=== PATIENT | female | born 1990 | race Caucasian/White ===

== ENCOUNTER 2016-09-29 07:12 | Inpatient (IN) | payer BC, OTHER ==
[2016-09-29] VITALS (25 sets, daily range): BP systolic 85–148; BP diastolic 42–90; PULSE 72–121; RESP 16–20; TEMP 98.1–98.5; O2SAT 97–98
[~2016-09-29 07:12] MED LIST: SULF-154 PO; Z.0.NO CURRENT MEDS
--- NOTE | 2016-09-29 08:44 | HHI.HP ---
History & Physical H&P HPI HPI Chief Complaint leakage of fluid Date Seen: Sep 29, 2016 Travel History International Travel<30 Days: No Contact w/Intl Traveler<30Days: No Known Affected Area: No History of Present Illness HPI 26 yo @ 40w6d, care with Dr. Gomes. Uncomplicated . GBS negative. Patient reports gush of fluid @ 6;30 am, clear. Starting to have UC stronger now every few min. No VB. +Fm History (Limited) History Past Medical History Narrative Medical PCOS Obstetric History Obstetric History G1 Past Surgical History Surgical History: No Previous Surgery Family History Family History: Negative Social History Alcohol Use: No Tobacco Use: No Substance Abuse: No Allergies-Medications Allergies-Medications (Allergen,Severity, Reaction): Coded Allergies: No Known Allergies (Verified , 09/29/16) Home Meds Active Scripts Sulfamethoxazole-Trimethoprim (Septra Ds) Tab1 Tab PO BID 10 Days Prov:KEVIN GRACE M.D. 07/10/10 Reported Medications Miscellaneous (No Current Meds) Misc 07/10/10 ROS Review of Systems General / Constitutional: No: Fever, Chills Eyes: No: Blurred Vision, Visual changes HENT: No: Headaches, Lightheadedness Cardiovascular: No: Chest Pain or Discomfort, Palpitations Respiratory: No: Cough, Short of Breath Gastrointestinal: Abdominal Pain (contractions), No: Nausea, Vomiting Genitourinary: Discharge (clear fluid), No: Urgency, Dysuria, Vaginal Bleeding Musculoskeletal: No: Limited ROM, Weakness Skin: No Rash, No Itching, No Lesions Neurologic: No: Syncope, Focal Abnormalities Physical Exam Physical Exam Narrative GENERAL: Well-nourished, well-developed patient. Uncomfortable with UC SKIN: Warm and dry. HEAD: Normocephalic and atraumatic. EYES: No scleral icterus. No injection or drainage. ENT: No nasal drainage noted. Mucous membranes pink. Airway patent. NECK:, trachea midline. No JVD. CARDIOVASCULAR: Regular rate and rhythm without murmurs, gallops, or rubs. RESPIRATORY: Breath sounds equal bilaterally. No accessory muscle use. ABDOMEN/GI: Abdomen soft, non-tender, no rebound, no guarding Gravid GENITOURINARY: External Genitalia: intact and normal in appearance BUS glands: [-] Amnisure POS SVE 3/80/-3 clear fluid, vtx FHT's: Category: I Baseline:140 Reactive: + Variability: mod Decels: [-] EXTREMITIES: No cyanosis, +2 edema, NT BACK: Nontender without obvious deformity. NEUROLOGICAL: Awake and alert. Motor and sensory grossly within normal limits. . Normal speech. Data Data Data Vital Signs Reviewed: Yes Orders Ob (2e) Additional Admit Info (09/29/16 07:54) Vital Signs (Adult) .ON ADMISSION (09/29/16 08:32) ^ Labor Status (09/29/16 08:32) ^ Non Stress Test (09/29/16 08:32) Pamg-1 Test .ONCE (09/29/16 08:32) MDM MDM Narrative Course / MDM 40 weeks PROM, now jett GBS negative CAT I FHT 3cm Plan Admit reviewed labor and admission reviewed pitocin as indicated Dr. Mclean aware. Renetta Wolff MD Sep 29, 2016 08:43 Renetta Wolff MD Sep 29, 2016 08:44
[2016-09-29] MEDS ORDERED: LACTATED RINGER'S 1000 ML INJ 1,000 ML IV PRN (10:03)
[2016-09-29] MEDS ORDERED: OXYTOCIN 30 UNITS-500ML PREMIX 500 ML IV ONE ×3 (10:15→20:45)
[2016-09-29] MEDS ORDERED: CITRIC ACID-SODIUM CITRATE LIQ 30 ML UDC PO SCH (10:15)
[2016-09-29] MEDS ORDERED: SODIUM CHLORID 0.9% 500 ML INJ 500 ML IV PRN (10:15)
[2016-09-29] MEDS ORDERED: LIDOCAINE HCL 1% 50 ML VIAL I-DERMAL PRN (10:15)
[2016-09-29] MEDS ORDERED: MINERAL OIL 10 ML VIAL TOPICAL PRN (10:15)
[2016-09-29] MEDS ORDERED: LIDOCAINE HCL 1% 50 ML VIAL INFIL PRN (10:15)
[2016-09-29 10:16] LABS: AUTOMATED NEUTROPHIL # 6.8 TH/MM3 (1.8-7.7); BASOPHIL % 0.2 % (0.0-2.0); EOSINOPHIL # 0.1 TH/MM3 (0-0.4); EOSINOPHIL % 1.3 % (0.0-4.0); HEMATOCRIT 36.6 % (35.0-46.0); HEMO FLAGS DIFF FINAL; LYMPH % 20.5 % (9.0-44.0); MEAN CELL VOLUME 89.9 FL (80.0-100.0); MEAN CORPUSCULAR HEMOGLOBIN 30.1 PG (27.0-34.0); MEAN CORPUSCULAR HGB CONC 33.4 % (32.0-36.0); MONO % 6.6 % (0.0-8.0); NEUT % 71.4 % (16.0-70.0); PLATELET COUNT 304 TH/MM3 (150-450); RED BLOOD COUNT 4.07 MIL/MM3 (4.00-5.30); RED CELL DISTRIBUTION WIDTH 13.1 % (11.6-17.2); WHITE BLOOD COUNT 9.6 TH/MM3 (4.0-11.0)
[2016-09-29] MEDS ORDERED: fentaNYL 2MCG-BUPIV 0.125% INJ 100 ML ONE (10:18)
[2016-09-29] MEDS ORDERED: SODIUM CHLOR 0.9% 1000 ML INJ 1,000 ML IV PRN (10:23)
[2016-09-29] MEDS: LACTATED RINGER'S 1000 ML INJ 1,000 ML IV SCH ×2 (10:53→15:08)
[2016-09-29] MEDS ORDERED: GENTAMICIN/SOD CHL 80 MG/100 ML IV ONE (15:15)
[2016-09-29] MEDS ORDERED: fentaNYL 2MCG-BUPIV 0.125% 100 ML EPIDURAL SCH (15:30)
[2016-09-29] MEDS ORDERED: DO NOT ADMINISTER ANTICOAGULANTS PRN (15:30)
[2016-09-29] MEDS ORDERED: NO SYSTEM NARCOTICS PRN (15:30)
[2016-09-29] MEDS ORDERED: ePHEDrine/NS 25 MG/5 ML SYR IV PRN (15:30)
[2016-09-29] MEDS ORDERED: AMPICILLIN 1 GM/NS 100 ML IV SCH ×2 (16:00)
--- NOTE | 2016-09-29 17:28 | HHI.PR ---
Subjective Remarks I have to push. The pain is bad Objective Vital Signs Date Time Temp Pulse Resp B/P Pulse Ox O2 Delivery O2 Flow Rate FiO2 09/29/16 16:46 95 104/74 09/29/16 16:31 94 148/73 09/29/16 16:16 109 129/52 09/29/16 16:10 98.3 20 09/29/16 16:00 93 123/70 09/29/16 15:46 102 101/66 09/29/16 15:30 20 09/29/16 15:15 90 113/54 09/29/16 14:37 78 106/49 09/29/16 14:35 90 106/57 09/29/16 14:33 99 113/50 09/29/16 12:30 16 09/29/16 12:15 72 110/61 09/29/16 10:53 18 Result Diagram: 09/29/16 0820 Other Results Abdomen is soft but not warm Pelvic she has a small anterior lip which reduces easily with pushing. Baby is at zero station. Moves with pushing. She is warm inside Objective Remarks Tracing looks ok, she had a couple lates but they resolved. Assessment and Plan Assessment and Plan Advanced labor... will try to push and see if she brings the baby down. The baby is OP Chorioamnionitis Earlier today she had chills but no temp and was not warm. She spiked a fever and we started amp and gent. Notified peds already Would like to have a and will watch the strip carefully. Her pelvis is adequate. Naren Mclean MD Sep 29, 2016 17:28
[2016-09-29] MEDS ORDERED: OXYTOCIN 10 UNIT/ML AMP ONE (18:13)
[2016-09-29] MEDS ORDERED: METHYLERGONOVINE MALEATE 0.2 MG/ML VIAL ONE (18:14)
[2016-09-29] MEDS ORDERED: CARBOPROST TROMETHAMINE 250 MCG/ML VIAL ONE (18:14)
[2016-09-29] MEDS ORDERED: ONDANSETRON HCL 4 MG/2 ML VIAL ONE (18:36)
[2016-09-29] MEDS ORDERED: MORPHINE SULFATE PF 5 MG/10 ML VIAL ONE (18:36)
[2016-09-29] MEDS ORDERED: ACETAMINOPHEN 1000 MG/100 ML VIAL IV ONE (18:37)
[2016-09-29] MEDS ORDERED: ceFAZolin INJ 1,000 MG VIAL ONE (18:37)
[2016-09-29 19:37] LABS: BLOOD GAS BASE EXCESS -5.9 mmol/L (-2-2); BLOOD GAS O2 HGB SATURATION 9 % (90-100); CORD BLOOD GAS HCO3 21 mmol/L (21-29); CORD BLOOD GAS PCO2 59 mmHG (34-78); CORD BLOOD GAS PH 7.18 (7.14-7.42); CORD BLOOD GAS PO2 11 mmHG (3.0-40.0); DRAW SITE CORD BLOOD; STAT NO
[2016-09-29] MEDS ORDERED: SODIUM CHLORIDE 0.9% FLUSH 10 ML FLUSH IV FLUSH PRN (20:45)
[2016-09-29] MEDS ORDERED: SIMETHICONE 80 MG CHEWABLE TAB PO PRN (20:45)
[2016-09-29] MEDS ORDERED: ONDANSETRON HCL 4 MG/2 ML VIAL IV PUSH PRN (20:45)
[2016-09-29] MEDS ORDERED: oxyCODONE/ACETAMINOPHEN 5 MG/325 MG TAB PO PRN (20:45)
[2016-09-29] MEDS: SODIUM CHLORIDE 0.9% FLUSH 10 ML FLUSH IV FLUSH SCH (21:00)
[2016-09-29] MEDS ORDERED: ZOLPIDEM TARTRATE 5 MG TAB PO PRN (21:00)
[2016-09-29] MEDS ORDERED: LACTATED RINGER'S 1,000 ML BAG IV ONE (21:04)
[2016-09-29] MEDS ORDERED: PHENYLEPHRINE HCL 10 MG/ML VIAL IV ONE (21:04)
[2016-09-29] MEDS ORDERED: SODIUM BICARBONATE 8.4% SOLN 50 MEQ/50 ML VIAL IV ONE (21:04)
[2016-09-29] MEDS ORDERED: LIDOCAINE 2%/EPINEPHrine PF 1:200,000 20ML SDV NERV BLOCK ONE (21:04)
[2016-09-29] MEDS ORDERED: OXYTOCIN 30 UNITS-500ML PREMIX 500 ML ONE (21:11)
[2016-09-29] MEDS ORDERED: EPIDURAL-DIPHENHYDRAMINE HCL 50 MG CAP PO PRN (22:30)
[2016-09-29] MEDS ORDERED: EPIDURAL-DIPHENHYDRAMINE HCL 50 MG/ML VIAL IV PUSH PRN (22:30)
[2016-09-29] MEDS ORDERED: EPIDURAL-NALOXONE HCL 0.4 MG/ML AMP IV PRN (22:30)
[2016-09-29] MEDS ORDERED: EPIDURAL-DO NOT ADMINISTER ANTICOAGULANTS PRN (22:30)
[2016-09-29] MEDS ORDERED: EPIDURAL-NO SYSTEMIC NARCOTICS PRN (22:30)
[2016-09-30] VITALS (13 sets, daily range): BP systolic 97–114; BP diastolic 50–69; PULSE 87–111; RESP 14–20; TEMP 97.7–98.5
[2016-09-30] MEDS ORDERED: LACTATED RINGER'S 1000 ML INJ 1,000 ML IV SCH (01:36)
[2016-09-30] MEDS: ACETAMINOPHEN 1000 MG/100 ML VIAL IV SCH ×2 (03:21→10:47)
[2016-09-30 06:19] LABS: AUTOMATED NEUTROPHIL # 10.7 TH/MM3 (1.8-7.7); BASOPHIL % 0.2 % (0.0-2.0); EOSINOPHIL % 0.1 % (0.0-4.0); HEMATOCRIT 22.3 % (35.0-46.0); HEMO FLAGS DIFF FINAL; LYMPH % 13.4 % (9.0-44.0); LYMPHOCYTE # 1.8 TH/MM3 (1.0-4.8); MEAN CELL VOLUME 89.3 FL (80.0-100.0); MEAN CORPUSCULAR HEMOGLOBIN 30.5 PG (27.0-34.0); MEAN CORPUSCULAR HGB CONC 34.2 % (32.0-36.0); MONO % 8.4 % (0.0-8.0); NEUT % 77.9 % (16.0-70.0); PLATELET COUNT 233 TH/MM3 (150-450); RED BLOOD COUNT 2.49 MIL/MM3 (4.00-5.30); RED CELL DISTRIBUTION WIDTH 13.1 % (11.6-17.2); WHITE BLOOD COUNT 13.7 TH/MM3 (4.0-11.0)
[2016-09-30] MEDS ORDERED: OXYTOCIN 30 UNITS-500ML PREMIX 500 ML IV PRN (06:45)
--- NOTE | 2016-09-30 09:59 | HHI.OB ---
Subjective Post Operative Day: 1 Remarks Doing ok, I had very heavy bleeding at 2am this morning. Baby is doing well, no iv or antibiotics Tolerating diet No chest pain dizziness or SOB Objective Vitals/I&O Vital Signs Date Time Temp Pulse Resp B/P Pulse Ox O2 Delivery O2 Flow Rate FiO2 09/30/16 08:00 91 114/64 09/30/16 08:00 98.3 16 09/30/16 03:20 98.5 87 14 97/50 09/29/16 22:20 89 16 105/64 09/29/16 22:20 98.1 09/29/16 21:45 98.5 98 18 112/56 97 09/29/16 21:30 107/53 09/29/16 21:30 18 105/53 98 09/29/16 21:29 95 09/29/16 21:15 100/50 09/29/16 21:15 90 18 98 09/29/16 21:00 18 98 09/29/16 20:59 85/42 09/29/16 20:59 90 09/29/16 20:40 98.3 85 18 92/48 98 09/29/16 17:46 100 124/65 09/29/16 17:31 88 130/77 09/29/16 17:15 99 135/90 09/29/16 17:00 121 104/62 09/29/16 16:46 95 104/74 09/29/16 16:31 94 148/73 09/29/16 16:16 109 129/52 09/29/16 16:10 98.3 20 09/29/16 16:00 93 123/70 09/29/16 15:46 102 101/66 09/29/16 15:30 20 09/29/16 15:15 90 113/54 09/29/16 14:37 78 106/49 09/29/16 14:35 90 106/57 09/29/16 14:33 99 113/50 09/29/16 12:30 16 09/29/16 12:15 72 110/61 09/29/16 10:53 18 Result Diagram: 09/30/16 0604 Objective Remarks GENERAL: Well-nourished, well-developed patient. CARDIOVASCULAR: Regular rate and rhythm without murmurs, gallops, or rubs. RESPIRATORY: Breath sounds equal bilaterally. No accessory muscle use. ABDOMEN/GI: Abdomen soft, non-tender, bowel sounds present. Incision: Clean, dry and intact. Fundus: Firm, non-tender at umbilicus. GENITOURINARY: moderate bleeding right now as she went to the bathroom. EXTREMITIES: No cyanosis or edema, non-tender, without signs of DVT. Medications and IVs Current Medications Medications (Trade) Dose Ordered Sig/Carina Route Start Time Stop Time Status Last Admin (Lr 1000 ml Inj) 1,000 ml @ 100 mls/hr Q10H IV 09/30/16 01:36 09/30/16 21:35 (NS Flush) 2 ml BID IV FLUSH 09/29/16 21:00 (NS Flush) 2 ml UNSCH PRN IV FLUSH 09/29/16 20:45 (Mylicon Chew) 80 mg QID PRN PO 09/29/16 20:45 (Motrin) 600 mg Q6H PRN PO 09/29/16 20:45 (Percocet 5-325 Mg) 1 tab Q4H PRN PO 09/29/16 20:45 Oxycodone/ Acetaminophen 2 tab 2 tab Q4H PRN PO 09/29/16 20:45 (Ancef Inj/NS Inj) 100 ml @ 200 mls/hr Q8H IV 09/30/16 02:00 09/30/16 10:29 09/30/16 01:26 (Perla-Colace) 2 tab Q12H PRN PO 09/29/16 20:45 (Ambien) 5 mg HS PRN PO 09/29/16 21:00 (M-M-R Ii Inj) 0.5 ml ONCE ONCE SQ 09/30/16 16:00 09/30/16 16:01 (Boostrix Inj) 0.5 ml ONCE ONCE IM 09/30/16 16:00 09/30/16 16:01 (Zofran Inj) 4 mg Q6H PRN IV PUSH 09/29/16 20:45 Miscellaneous Information NO SYSTEMIC NARCOTICS TO BE GIVEN FO... UNSCH PRN .XX 09/29/16 22:30 09/30/16 22:29 (Narcan Inj) 0.4 mg UNSCH PRN IV 09/29/16 22:30 09/30/16 22:29 (Benadryl Inj) 25 mg Q6H PRN IV PUSH 09/29/16 22:30 09/30/16 22:29 (Benadryl) 50 mg Q6H PRN PO 09/29/16 22:30 09/30/16 22:29 Miscellaneous Information ALL NURSING DEPARTMENTS UNSCH PRN .XX 09/29/16 22:30 09/30/16 22:29 (Ofirmev Inj) 1,000 mg Q8H IV 09/30/16 03:00 09/30/16 11:01 09/30/16 03:21 Assessment/Plan Assessment and Plan POD #1 S/P C/S for arrest pt of decent. She also had chorio. as well. Severe anemia due to blood loss. Will repeat the cbc in am and give her some hemabate now. Need to watch carefully for future bleeding episodes but now her fundus is firm and after the bathroom bleeding is small. Will wait til tomorrow to start the venofer as I do not want to give it if she is infected. No evidence of infection now on labs or PE Discharge Planning Plan to d/c on POD #3 Naren Mclean MD Sep 30, 2016 09:59
[2016-09-30] MEDS ORDERED: CARBOPROST TROMETHAMINE 250 MCG/ML VIAL ONE (10:42)
[2016-09-30] MEDS ORDERED: CARBOPROST TROMETHAMINE 250 MCG/ML VIAL IM ONE (10:45)
[2016-09-30] MEDS: oxyCODONE/ACETAMINOPHEN 5 MG/325 MG TAB PO PRN ×2 (14:37→21:19)
[2016-09-30] MEDS: IBUPROFEN 600 MG TAB PO PRN ×2 (14:38→21:20)
[2016-09-30] MEDS ORDERED: DIPHTH/TETANUS/ACEL PERTUSSIS (BOOSTER) 0.5 ML VIAL/PFS IM ONE (16:00)
[2016-09-30] MEDS ORDERED: MEASLES, MUMPS, RUBELLA VACCINE 0.5 ML VIAL SQ ONE (16:00)
[2016-09-30] MEDS: DOCUSATE SODIUM 50 MG/SENNA 8.6 MG TAB PO PRN (21:20)
[2016-10-01] MEDS: IBUPROFEN 600 MG TAB PO PRN ×3 (03:11→19:11)
[2016-10-01] MEDS: oxyCODONE/ACETAMINOPHEN 5 MG/325 MG TAB PO PRN ×4 (03:11→23:04)
[2016-10-01 06:02] LABS: AUTOMATED NEUTROPHIL # 10.1 TH/MM3 (1.8-7.7); BASOPHIL % 0.2 % (0.0-2.0); EOSINOPHIL # 0.1 TH/MM3 (0-0.4); EOSINOPHIL % 0.9 % (0.0-4.0); LYMPH % 12.7 % (9.0-44.0); LYMPHOCYTE # 1.6 TH/MM3 (1.0-4.8); MEAN CELL VOLUME 88.9 FL (80.0-100.0); MEAN CORPUSCULAR HEMOGLOBIN 30.5 PG (27.0-34.0); MEAN CORPUSCULAR HGB CONC 34.3 % (32.0-36.0); MONO % 7.8 % (0.0-8.0); NEUT % 78.4 % (16.0-70.0); PLATELET COUNT 236 TH/MM3 (150-450); RED BLOOD COUNT 2.23 MIL/MM3 (4.00-5.30); RED CELL DISTRIBUTION WIDTH 13.1 % (11.6-17.2); WHITE BLOOD COUNT 12.9 TH/MM3 (4.0-11.0)
[2016-10-01 06:05] LABS: HEMO FLAGS DIFF FINAL
[2016-10-01 06:07] LABS: HEMATOCRIT 19.8 % (35.0-46.0)
[2016-10-01 08:00] VITALS: BP 110/76; PULSE 109; RESP 18; TEMP 98.4
--- NOTE | 2016-10-01 08:00 | HHI.OB ---
Subjective Post Operative Day: 2 Remarks Doing well No SOB dizziness or chest pain Baby is doing great Objective Vitals/I&O Vital Signs Date Time Temp Pulse Resp B/P Pulse Ox O2 Delivery O2 Flow Rate FiO2 09/30/16 22:16 111 20 100/69 09/30/16 22:16 98.4 09/30/16 19:15 16 09/30/16 18:30 18 09/30/16 17:55 18 09/30/16 16:48 97.7 89 16 105/52 09/30/16 14:30 18 09/30/16 13:15 98.1 09/30/16 13:15 97 18 99/65 09/30/16 11:10 18 09/30/16 10:45 18 09/30/16 09:05 20 09/30/16 09:00 18 09/30/16 08:00 91 114/64 09/30/16 08:00 98.3 16 Result Diagram: 10/01/16 0512 Objective Remarks GENERAL: Well-nourished, well-developed patient. CARDIOVASCULAR: Regular rhythm, slg tachycardic without murmurs, gallops, or rubs. RESPIRATORY: Breath sounds equal bilaterally. No accessory muscle use. ABDOMEN/GI: Abdomen soft, non-tender, bowel sounds present. Incision: Clean, dry and intact. Fundus: Firm, non-tender at umbilicus. GENITOURINARY: moderate bleeding right now as she went to the bathroom. EXTREMITIES: No cyanosis or edema, non-tender, without signs of DVT. Medications and IVs Current Medications Medications (Trade) Dose Ordered Sig/Carina Route Start Time Stop Time Status Last Admin (NS Flush) 2 ml BID IV FLUSH 09/29/16 21:00 (NS Flush) 2 ml UNSCH PRN IV FLUSH 09/29/16 20:45 (Mylicon Chew) 80 mg QID PRN PO 09/29/16 20:45 (Motrin) 600 mg Q6H PRN PO 09/29/16 20:45 10/01/16 03:11 (Percocet 5-325 Mg) 1 tab Q4H PRN PO 09/29/16 20:45 (Percocet 5-325 Mg) 2 tab Q4H PRN PO 09/29/16 20:45 10/01/16 03:11 (Perla-Colace) 2 tab Q12H PRN PO 09/29/16 20:45 09/30/16 21:20 (Ambien) 5 mg HS PRN PO 09/29/16 21:00 Ondansetron HCl 4 mg 4 mg Q6H PRN IV PUSH 09/29/16 20:45 (Venofer Inj/NS Inj) 110 ml @ 110 mls/hr DAILY IV 10/01/16 09:00 10/03/16 09:59 Assessment/Plan Assessment and Plan POD #2 S/P C/S for arrest pt of decent. She also had chorio. as well. Severe anemia due to blood loss. Will repeat the cbc in am and give her some hemabate now. Discussed the RBA of blood transfusion in detail today. Since she is ASX will hold off for now and check the cbc in the am. Discharge Planning Plan to d/c on POD #3 Naren Mclean MD Oct 01, 2016 08:00 Naren Mclean MD Oct 01, 2016 08:00
[2016-10-01] MEDS ORDERED: IRON SUCROSE INJ 200 MG in SODIUM CHLORIDE 0.9% INJ 100 ML IV SCH (09:00)
[2016-10-01] MEDS: DOCUSATE SODIUM 50 MG/SENNA 8.6 MG TAB PO PRN (09:18)
[2016-10-01] MEDS: SODIUM CHLORIDE 0.9% FLUSH 10 ML FLUSH IV FLUSH SCH (09:19)
--- NOTE | 2016-10-01 12:09 | HHI.PR ---
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 Suspect less than 1/2 of bag infused. Will get new line higher than hand and plan 2 additional bags of Venofer to be infused today. Will recheck H/H at 6p today, as long as stable d/w pt should not need transfusion due to asymptomatic currently, will need to increase oral iron & iron rich foods on discharge. Si/sx to look for reviewed again. Eugenia Gomes MD Oct 01, 2016 12:08
--- NOTE | 2016-10-01 15:25 | MP ---
cc: Naren MCLEAN DATE OF SURGERY 09/29/16 PREOPERATIVE DIAGNOSIS 1. Arrest of descent 2. Chorioamnionitis. POSTOPERATIVE DIAGNOSIS 1. Arrest of descent 2. Chorioamnionitis. PROCEDURE Primary low transverse section ANESTHESIA Epidural SURGEON Naren Mclean MD FINDINGS A normal male infant. Apgars 6 and 9, weight was 9 pounds 9 ounces, normal tubes, normal ovaries, normal uterus, normal cul-de-sac. COMPLICATION None. COUNTS Correct. ESTIMATED BLOOD LOSS 800 mL FLUIDS Crystalloids. DISPOSITION The patient tolerated the procedure well and went to recovery room in good condition. INDICATIONS FOR PROCEDURE This is a patient who advanced slowly to complete and after a approximately 1 hour of pushing, she had not descended at all. The caput was getting large. She had adequate contractions per [facility] recall arrest of descent. The baby was found to be right occiput transverse. PROCEDURE IN DETAIL DATE OF PROCEDURE ?? PROCEDURE Primary low transverse section. SURGEON Naren Mclean MD LIBRARY TECHNICAL ASSISTANT ANESTHESIA FINDINGS COMPLICATIONS None. COUNTS Correct. ESTIMATED BLOOD LOSS ?? cc. FLUIDS Crystalloid. CONDITION The patient tolerated the procedure well and went to the recovery room in satisfactory condition. PROCEDURE IN DETAIL Under an adequate level of anesthesia, she was prepped and draped for abdominal surgery. A Pfannenstiel incision was made and carried down to the fascia. The fascia was taken off the rectus muscle by blunt and sharp dissection. The rectus muscles were spread bluntly and the peritoneum was entered under direct vision without difficulty. The incision was extended with care to avoid the urinary bladder. A bladder blade was placed and a bladder flap created in the usual fashion. The uterine incision was made in a transverse manner along the lower uterine segment which was now well-developed. It was taken down in the midline until the intrauterine cavity was entered. A large amount of clear fluid was noted. The vertex was grasped with a suction cup and delivered. The hypopharynx and nasopharynx were suctioned and the remainder of the delivered without difficulty. The cord was doubly clamped and cut and the infant handed to the resuscitation team present. The placenta was then delivered manually. The uterus was curettaged twice with a wet lap and irrigated with a large amount of fluid. The uterine incision was then repaired with 2-0 Vicryl in a running locking fashion, with the second layer imbricating the first. Hemostasis was excellent. The cul-de-sac and gutters were cleaned of blood and debris. The uterus was delivered back into the abdomen. The rectus muscles were reapproximated with 0 Vicryl in interrupted fashion. The fascia was repaired from lateral to midline with 0 Vicryl and the subcu was repaired with 3-0 Vicryl. The skin was repaired with a 4-0 Vicryl in a subcuticular manner. The wound was sterilely dressed. She tolerated the procedure well and went to the recovery room in satisfactory condition. R. MD AAKASH Shaw/ /8:39 PM /3:27 PM
[2016-10-01] MEDS: IRON SUCROSE INJ 200 MG in SODIUM CHLORIDE 0.9% INJ 100 ML IV SCH ×2 (15:52→19:38)
[2016-10-01 16:15] VITALS: BP 121/50; PULSE 103; RESP 20; TEMP 97.9
[2016-10-01 18:35] LABS: HEMATOCRIT 21.4 % (35.0-46.0)
[2016-10-01 19:30] VITALS: BP 94/50; PULSE 111; RESP 16; TEMP 98.7
[2016-10-02 05:06] LABS: AUTOMATED NEUTROPHIL # 6.7 TH/MM3 (1.8-7.7); BASOPHIL % 0.2 % (0.0-2.0); EOSINOPHIL # 0.3 TH/MM3 (0-0.4); EOSINOPHIL % 2.6 % (0.0-4.0); LYMPH % 25.3 % (9.0-44.0); LYMPHOCYTE # 2.6 TH/MM3 (1.0-4.8); MEAN CELL VOLUME 90.2 FL (80.0-100.0); MEAN CORPUSCULAR HEMOGLOBIN 30.8 PG (27.0-34.0); MEAN CORPUSCULAR HGB CONC 34.2 % (32.0-36.0); MONO % 6.2 % (0.0-8.0); NEUT % 65.7 % (16.0-70.0); PLATELET COUNT 285 TH/MM3 (150-450); RED CELL DISTRIBUTION WIDTH 13.4 % (11.6-17.2); WHITE BLOOD COUNT 10.2 TH/MM3 (4.0-11.0)
[2016-10-02 05:18] LABS: HEMO FLAGS AUTO DIFF
[2016-10-02 05:19] LABS: HEMATOCRIT 19.9 % (35.0-46.0)
[2016-10-02] MEDS: IBUPROFEN 600 MG TAB PO PRN (06:32)
[2016-10-02 06:57] LABS: BANDS 9 % (0-6); EOSINOPHILS 1 % (0-4); METAMYELOCYTES 2 % (0-1); NEUTROPHIL # MANUAL DIFF 7.1 TH/MM3 (1.8-7.7); PLATELET ESTIMATE SMEAR NORMAL (NORMAL); PLATELET MORPHOLOGY NORMAL (NORMAL); POLYS (SEG NEUTROPHILS) 59 % (16-70); SCAN/DIFF FINAL DIFF MANUAL; WBC DIFF SAMPLE 100
[2016-10-02 07:50] VITALS: BP 105/53; PULSE 106; RESP 16; TEMP 98
--- NOTE | 2016-10-02 08:41 | HHI.OB ---
Subjective Post Operative Day: 3 Remarks POD#3, Patient with anemia secondary to cd,operative hemorrhage. denies dizziness,SOB/CP, hgb 6.8 this am. Objective Vitals/I&O Vital Signs Date Time Temp Pulse Resp B/P Pulse Ox O2 Delivery O2 Flow Rate FiO2 10/01/16 19:30 98.7 111 16 94/50 10/01/16 16:15 97.9 103 20 10/01/16 16:15 121/50 Result Diagram: 10/02/16 0409 Objective Remarks GENERAL: Well-nourished, well-developed patient. CARDIOVASCULAR: Regular rhythm, slg tachycardic without murmurs, gallops, or rubs. RESPIRATORY: Breath sounds equal bilaterally. No accessory muscle use. ABDOMEN/GI: Abdomen soft, non-tender, bowel sounds present. Incision: Clean, dry and intact. Fundus: Firm, non-tender at umbilicus. GENITOURINARY: moderate bleeding right now as she went to the bathroom. EXTREMITIES: No cyanosis or edema, non-tender, without signs of DVT. Medications and IVs Current Medications Medications (Trade) Dose Ordered Sig/Carina Route Start Time Stop Time Status Last Admin (NS Flush) 2 ml BID IV FLUSH 09/29/16 21:00 10/01/16 09:19 (NS Flush) 2 ml UNSCH PRN IV FLUSH 09/29/16 20:45 (Mylicon Chew) 80 mg QID PRN PO 09/29/16 20:45 (Motrin) 600 mg Q6H PRN PO 09/29/16 20:45 10/02/16 06:32 (Percocet 5-325 Mg) 1 tab Q4H PRN PO 09/29/16 20:45 (Percocet 5-325 Mg) 2 tab Q4H PRN PO 09/29/16 20:45 10/01/16 23:04 (Perla-Colace) 2 tab Q12H PRN PO 09/29/16 20:45 10/01/16 09:18 (Ambien) 5 mg HS PRN PO 09/29/16 21:00 (Zofran Inj) 4 mg Q6H PRN IV PUSH 09/29/16 20:45 Assessment/Plan Assessment and Plan POD #3, Patient clinically is stable,ambulating,no orthostatic symptoms. Discussed repeating another IV iron dose,then discharge to home today. Discharge Planning Plan discharge home after venofer. RTO in 1 week, instructed on home activities and iron supplements Attending Attestation seen by Knu Self MD Oct 02, 2016 08:41
--- NOTE | 2016-10-02 08:41 | HHI.OB ---
Subjective Post Operative Day: 3 Remarks Doing well this morning. No shortness of breath chest pain pressure or dizziness Tolerating the diet well and taking only Motrin for pain Baby is doing fantastic Objective Vitals/I&O Vital Signs Date Time Temp Pulse Resp B/P Pulse Ox O2 Delivery O2 Flow Rate FiO2 10/01/16 19:30 98.7 111 16 94/50 10/01/16 16:15 97.9 103 20 10/01/16 16:15 121/50 Result Diagram: 10/02/16 0409 Objective Remarks GENERAL: Well-nourished, well-developed patient. CARDIOVASCULAR: Regular rhythm, slg tachycardic without murmurs, gallops, or rubs. RESPIRATORY: Breath sounds equal bilaterally. No accessory muscle use. ABDOMEN/GI: Abdomen soft, non-tender, bowel sounds present. Incision: Clean, dry and intact. Fundus: Firm, non-tender at umbilicus. GENITOURINARY: moderate bleeding right now as she went to the bathroom. EXTREMITIES: No cyanosis or edema, non-tender, without signs of DVT. Medications and IVs Current Medications Medications (Trade) Dose Ordered Sig/Carina Route Start Time Stop Time Status Last Admin (NS Flush) 2 ml BID IV FLUSH 09/29/16 21:00 10/01/16 09:19 (NS Flush) 2 ml UNSCH PRN IV FLUSH 09/29/16 20:45 (Mylicon Chew) 80 mg QID PRN PO 09/29/16 20:45 (Motrin) 600 mg Q6H PRN PO 09/29/16 20:45 10/02/16 06:32 (Percocet 5-325 Mg) 1 tab Q4H PRN PO 09/29/16 20:45 (Percocet 5-325 Mg) 2 tab Q4H PRN PO 09/29/16 20:45 10/01/16 23:04 (Perla-Colace) 2 tab Q12H PRN PO 09/29/16 20:45 10/01/16 09:18 (Ambien) 5 mg HS PRN PO 09/29/16 21:00 (Zofran Inj) 4 mg Q6H PRN IV PUSH 09/29/16 20:45 Assessment/Plan Assessment and Plan POD #3 S/P C/S for arrest pt of decent. Severe anemia due to blood loss. Her H&H is fairly stable but after borderline where she may need a blood transfusion. I will sign her out to Dr. Houston who is covering today. Discharge Planning Plan to [facility]/c Naren Jane MD Oct 02, 2016 08:41
[2016-10-02] MEDS ORDERED: OXYC1TAB63 PO (08:44)
[2016-10-02] MEDS ORDERED: IBUP-232 PO (08:44)
--- NOTE | 2016-10-02 08:45 | HHI.DS ---
Admission Date Sep 29, 2016 at 07:59 Admitting Diagnosis Diagnosis: : Primary : Male Brief History 26 yo @ 40w6d, care with Dr. Gomes. Uncomplicated . GBS negative. Patient reports gush of fluid @ 6;30 am, clear. Starting to have UC stronger now every few min. No VB. +Fm Pt Condition on Discharge: Stable Discharge Disposition: Discharge Home Discharge Instructions Diet Instructions: As Tolerated, No Restrictions, Iron Rich Diet Activities You Can Perform: Shower Only-No Bath Activities to Avoid: Prolonged Standing, Strenuous Activity, Driving, Sexual Activity Kun Houston MD Oct 02, 2016 08:45
[2016-10-02] MEDS: oxyCODONE/ACETAMINOPHEN 5 MG/325 MG TAB PO PRN (08:56)
[2016-10-02] MEDS: DOCUSATE SODIUM 50 MG/SENNA 8.6 MG TAB PO PRN (08:56)
[2016-10-02] MEDS ORDERED: IRON SUCROSE INJ 100 MG in SODIUM CHLORIDE 0.9% INJ 100 ML IV ONE (09:30)
== END 2016-10-02 13:32 | disposition home or self-care (01) | DRG 765 ==
LOC: HOBED 07:12 → H2EB 07:59 → H1EA 22:01
PROVIDERS: ADMIT Obstetrics & Gynecology; ATTEND Obstetrics & Gynecology
PROC: 10D00Z1 Extraction of Products of Conception, Low, Open Approach (ICD-10-PCS; principal; 2016-09-29)
DX: O48.0 Post-term pregnancy (principal); O41.1230 Chorioamnionitis, third trimester, not applicable or unspecified; O67.8 Other intrapartum hemorrhage; O64.0XX0 Obstructed labor due to incomplete rotation of fetal head, not applicable or unspecified; O62.1 Secondary uterine inertia; E28.2 Polycystic ovarian syndrome; D50.0 Iron deficiency anemia secondary to blood loss (chronic); Z3A.40 40 weeks gestation of pregnancy; Z37.0 Single live birth
CPT/HCPCS: 82805; 84112; 85007; 85014; 85018; 85025; 85027; 86900; 86901; 88307; J0131; J0290; J0690; J1580; J1756; J2210; J2274; J2370; J2405; J2590; J3010; J7040; J7120